=== PATIENT | female | born 1960 | race American Indian/Alaskan Native ===

== ENCOUNTER 2020-08-10 19:49 | Emergency (ER) | payer OTHER ==
[2020-08-10 20:30] VITALS: BP 170/90
[2020-08-10] MEDS ORDERED: ONDANSETRON 4 MG ODT TAB PO ONE (20:40)
[2020-08-10] MEDS ORDERED: oxyCODONE /ACETAMINOPHEN 5-325MG TAB PO ONE (20:40)
--- NOTE | 2020-08-10 20:42 | Event Note ---
ED Screening Note Date of service: 08/10/20 Time: 20:41 ED Screening Note: Pt c/o left flank pain and nausea/vomiting times a day States history of kidney stones and states his pain feels similar This initial assessment/diagnostic orders/clinical plan/treatment(s) is/are subject to change based on patients health status, clinical progression and re- assessment by fellow clinical providers in the ED. Further treatment and workup at subsequent clinical providers discretion. Patient/guardian urged not to elope from the ED as their condition may be serious if not clinically assessed and managed. Initial orders include: Lab Pain meds
[2020-08-10 21:17] LABS: Hematocrit 40.4 % (30.3-42.9); Hemoglobin 13.7 gm/dl (10.1-14.3); Mean Corpuscular HGB Conc 34 % (30-34); Mean Corpuscular Volume 98 fl (79-97); Platelet Count 409 K/mm3 (140-440); Red Cell Distribution Width 12.7 % (13.2-15.2)
[2020-08-10 21:27] LABS: Albumin 4.1 g/dL (3.9-5); Calcium 9.6 mg/dL (8.4-10.2)
[2020-08-10 21:41] LABS: Bilirubin,Urine NEG (Negative); Blood,Urine NEG (Negative); Color,Urine Yellow (Yellow); Mucus,Urine FEW /HPF; Protein,Urine <15 mg/dL mg/dL (Negative); Urobilinogen,Urine < 2.0 mg/dL (<2.0)
[2020-08-10 22:05] LABS: Basophils % (Manual) 0 % (0.0-1.8); Eosinophils % (Manual) 0 % (0.0-4.3); Total Cells Counted 100
[2020-08-10 22:08] LABS: RBC Morphology Normal
[2020-08-11] MEDS ORDERED: ONDANSETRON 4 MG/2 ML INJ IV ONE (00:08)
[2020-08-11] MEDS ORDERED: KETOROLAC 30 MG/1 ML INJ IV ONE (00:08)
[2020-08-11] MEDS ORDERED: MORPHINE 4 MG/1 ML INJ IV ONE (00:08)
--- NOTE | 2020-08-11 01:10 | Cat Scan Report ---
CT abdomen pelvis wo con INDICATION / CLINICAL INFORMATION: Patient complains of LEFT sided flank pain. TECHNIQUE: Axial CT imaging of abdomen and pelvis was obtained without contrast. Coronal and sagittal reformatte d imaging obtained and reviewed. All CT scans at this location are performed using CT dose reduction for ALARA by means of automated exposure control. COMPARISON: None available. FINDINGS: CT abdomen without contrast demonstrates normal appearance of the liver, spleen, pancreas, right kidn ey, and gallbladder. There is prominent left hydronephrosis caused by a large calculus in the proxima l left ureter at the UPJ level. Calculus measures approximately 13 mm in length. There is prominent p erinephric inflammatory change surrounding the left kidney. Multiple calcified phleboliths within the left ovarian artery incidentally noted. Bilateral adrenal gland adenomas are noted. The right adrenal gland adenoma measures approximately 1. 4 cm with the left adrenal gland adenoma measuring approximately 2.[address] pelvis without contrast does not demonstrate any pelvic mass, free fluid, or focal inflammatory ch ortiz. The appendix is well-visualized and appears unremarkable. Note, there is a linear high density structure in the cecum. This does not appear to be causing any inflammation or abnormality but a smal l radiopaque linear foreign object cannot be excluded. Visualized lung bases are clear. No acute significant skeletal abnormality noted. IMPRESSION: 1. High-grade left hydronephrosis caused by a 13 mm calculus in the proximal left ureter at the UPJ l evel. 2. Incidental finding of a 3 cm linear high density object is seen within the cecum of uncertain etio logy or significance. A foreign object is not completely excluded. 3. Incidental finding of bilateral adrenal gland adenomas. Signer Name: Tess Landrum MD Signed: 08/11/2020 1:06 AM Workstation Name: [id number]
--- NOTE | 2020-08-11 01:41 | Emergency Department Report ---
ED Abdominal Pain HPI - General Chief Complaint: Abdominal Pain Stated Complaint: FLANK PAIN Time Seen by Provider: 08/10/20 20:39 Source: patient Mode of arrival: Ambulatory Limitations: No Limitations - History of Present Illness Initial Comments: Patient is a 60-year-old F [place] female who is presenting with left flank pain. Patient states pain was present throughout the day. She is had some nausea vomiting. She has a remote history of kidney stones. Patient denies any hematuria or urinary frequency. Pain is a 10 out of 10. Severity scale (0 -10): 10 - Related Data Previous Rx's Medication Instructions Recorded Last Taken Type Ketorolac [Toradol] 10 mg PO Q6H PRN #12 tablet 08/11/20 Unknown Rx Ondansetron [Zofran Odt] 4 mg PO Q8HR #10 tab.rapdis 08/11/20 Unknown Rx Oxycodone HCl/Acetaminophen 1 each PO Q6HR PRN #14 tablet 08/11/20 Unknown Rx [Percocet 7.5/325 mg] Allergies Allergy/AdvReac Type Severity Reaction Status Date / Time No Known Allergies Allergy Unverified 08/10/20 20:38 ED Review of Systems ROS: Stated complaint: FLANK PAIN Other details as noted in HPI Comment: All other systems reviewed and negative ED Past Medical Hx - Past Medical History Previous Medical History?: Yes Hx Hypertension: Yes Hx Diabetes: Yes Hx Kidney Stones: Yes Hx Asthma: Yes - Surgical History Past Surgical History?: Yes Additional Surgical History: - Social History Smoking Status: Never Smoker Substance Use Type: None - Medications Home Medications: Home Medications Medication Instructions Recorded Confirmed Last Taken Type Ketorolac [Toradol] 10 mg PO Q6H PRN #12 tablet 08/11/20 Unknown Rx Ondansetron [Zofran Odt] 4 mg PO Q8HR #10 tab.rapdis 08/11/20 Unknown Rx Oxycodone HCl/Acetaminophen 1 each PO Q6HR PRN #14 tablet 08/11/20 Unknown Rx [Percocet 7.5/325 mg] ED Physical Exam - General Limitations: No Limitations General appearance: alert, in distress - Head Head exam: Present: atraumatic, normocephalic - Eye Eye exam: Present: normal appearance - ENT ENT exam: Present: mucous membranes moist - Neck Neck exam: Present: normal inspection - Respiratory Respiratory exam: Present: normal lung sounds bilaterally. Absent: respiratory distress - Cardiovascular Cardiovascular Exam: Present: regular rate, normal rhythm. Absent: systolic murmur, diastolic murmur, rubs, gallop - GI/Abdominal GI/Abdominal exam: Present: soft, tenderness (left flank), normal bowel sounds. Absent: distended, guarding, rebound, rigid - Extremities Exam Extremities exam: Present: normal inspection - Back Exam Back exam: Present: normal inspection - Neurological Exam Neurological exam: Present: alert, oriented X3 - Psychiatric Psychiatric exam: Present: normal affect, normal mood - Skin Skin exam: Present: warm, dry, intact, normal color. Absent: rash ED Course Vital Signs 08/10/20 20:28 Temperature 98.6 F Pulse Rate 96 H Respiratory 22 Rate Blood Pressure 170/90 O2 Sat by Pulse 97 Oximetry ED Medical Decision Making - Lab Data Result diagrams: 08/10/20 20:48 08/10/20 20:48 Lab Results 08/10/20 08/10/20 08/10/20 Range/Units 20:48 20:48 Unknown WBC 11.5 H (4.5-11.0) K/mm3 RBC 4.10 (3.65-5.03) M/mm3 Hgb 13.7 (10.1-14.3) gm/dl Hct 40.4 (30.3-42.9) % MCV 98 H (79-97) fl MCH 33 H (28-32) pg MCHC 34 (30-34) % RDW 12.7 L (13.2-15.2) % Plt Count 409 (140-440) K/mm3 [place] % (Auto) Radiator Cleaner Add Manual Diff Complete Total Counted 100 Seg Neutrophils % Radiator Cleaner Seg Neuts % (Manual) 88.0 H (40.0-70.0) % Band Neutrophils % 0 % Lymphocytes % (Manual) 10.0 L (13.4-35.0) % Reactive Lymphs % (Man) 0 % Monocytes % (Manual) 2.0 (0.0-7.3) % Eosinophils % (Manual) 0 (0.0-4.3) % Basophils % (Manual) 0 (0.0-1.8) % Metamyelocytes % 0 % Myelocytes % 0 % Promyelocytes % 0 % Blast Cells % 0 % Nucleated RBC % Not Reportable Seg Neutrophils # Man 10.1 H (1.8-7.7) K/mm3 Band Neutrophils # 0.0 K/mm3 Lymphocytes # (Manual) 1.2 (1.2-5.4) K/mm3 Abs React Lymphs (Man) 0.0 K/mm3 Monocytes # (Manual) 0.2 (0.0-0.8) K/mm3 Eosinophils # (Manual) 0.0 (0.0-0.4) K/mm3 Basophils # (Manual) 0.0 (0.0-0.1) K/mm3 Metamyelocytes # 0.0 K/mm3 Myelocytes # 0.0 K/mm3 Promyelocytes # 0.0 K/mm3 Blast Cells # 0.0 K/mm3 WBC Morphology Not Reportable Hypersegmented Neuts Not Reportable Hyposegmented Neuts Not Reportable Hypogranular Neuts Not Reportable Smudge Cells Not Reportable Toxic Granulation Not Reportable Toxic Vacuolation Not Reportable Dohle Bodies Not Reportable Pelger-Huet Anomaly Not Reportable Parth Rods Not Reportable Platelet Estimate Not Reportable Clumped Platelets Not Reportable Plt Clumps, EDTA Not Reportable Large Platelets Not Reportable Giant Platelets Not Reportable Platelet Satelliting Not Reportable Plt Morphology Comment Not Reportable RBC Morphology Normal Dimorphic RBCs Not Reportable Polychromasia Not Reportable Hypochromasia Not Reportable Poikilocytosis Not Reportable Anisocytosis Not Reportable Microcytosis Not Reportable Macrocytosis Not Reportable Spherocytes Not Reportable Pappenheimer Bodies Not Reportable Sickle Cells Not Reportable Target Cells Not Reportable Tear Drop Cells Not Reportable Ovalocytes Not Reportable Helmet Cells Not Reportable Wong-Devine Bodies Not Reportable [place] Rings Not Reportable Ina Cells Not Reportable Bite Cells Not Reportable Crenated Cell Not Reportable Elliptocytes Not Reportable Acanthocytes (Spur) Not Reportable Rouleaux Not Reportable Hemoglobin C Crystals Not Reportable Schistocytes Not Reportable Malaria parasites Not Reportable Wiliam Bodies Not Reportable Hem Pathologist Commnt No Sodium 137 (137-145) mmol/L Potassium 4.3 (3.6-5.0) mmol/L Chloride 101.3 (98-107) mmol/L Carbon Dioxide 23 (22-30) mmol/L Anion Gap 17 mmol/L BUN 19 H (7-17) mg/dL Creatinine 1.7 H (0.6-1.2) mg/dL Estimated GFR 37 ml/min BUN/Creatinine Ratio 11 % Glucose 205 H (65-100) mg/dL Calcium 9.6 (8.4-10.2) mg/dL Total Bilirubin 0.30 (0.1-1.2) mg/dL AST 15 (5-40) units/L ALT 14 (7-56) units/L Alkaline Phosphatase 122 (35-129) units/L Total Protein 7.9 (6.3-8.2) g/dL Albumin 4.1 (3.9-5) g/dL Albumin/Globulin Ratio 1.1 % Lipase 19 (13-60) units/L Urine Color Yellow (Yellow) Urine Turbidity Clear (Clear) Urine pH 5.0 (5.0-7.0) Ur Specific [place] 1.020 (1.003-1.030) Urine Protein <15 mg/dl (Negative) mg/dL Urine Glucose (UA) Neg (Negative) mg/dL Urine Ketones Neg (Negative) mg/dL Urine Blood Neg (Negative) Urine Nitrite Neg (Negative) Urine Bilirubin Neg (Negative) Urine Urobilinogen < 2.0 (<2.0) mg/dL Ur Leukocyte Esterase Tr (Negative) Urine WBC (Auto) 2.0 (0.0-6.0) /HPF Urine RBC (Auto) 2.0 (0.0-6.0) /HPF U Epithel Cells (Auto) 5.0 (0-13.0) /HPF Urine Mucus Few /HPF - Radiology Data CT abdomen pelvis wo con INDICATION / CLINICAL INFORMATION: Patient complains of LEFT sided flank pain. TECHNIQUE: Axial CT imaging of abdomen and pelvis was obtained without contrast. Coronal and sagittal reformatted imaging obtained and reviewed. All CT scans at this location are performed using CT dose reduction for ALARA by means of automated exposure control. COMPARISON: None available. FINDINGS: CT abdomen without contrast demonstrates normal appearance of the liver, spleen, pancreas, right kidney, and gallbladder. There is prominent left hydronephrosis caused by a large calculus in the proximal left ureter at the UPJ level. Calculus measures approximately 13 mm in length. There is prominent perinephric inflammatory change surrounding the left kidney. Multiple calcified phleboliths within the left ovarian artery incidentally noted. Bilateral adrenal gland adenomas are noted. The right adrenal gland adenoma measures approximately 1.4 cm with the left adrenal gland adenoma measuring approximately 2.[address] pelvis without contrast does not demonstrate any pelvic mass, free fluid, or focal inflammatory change. The appendix is well-visualized and appears unremarkable. Note, there is a linear high density structure in the cecum. This does not appear to be causing any inflammation or abnormality but a small radiopaque linear foreign object cannot be excluded. Visualized lung bases are clear. No acute significant skeletal abnormality noted. IMPRESSION: 1. High-grade left hydronephrosis caused by a 13 mm calculus in the proximal left ureter at the UPJ level. 2. Incidental finding of a 3 cm linear high density object is seen within the cecum of uncertain etiology or significance. A foreign object is not completely excluded. 3. Incidental finding of bilateral adrenal gland adenomas. Signer Name: Tess Landrum MD Signed: 08/11/2020 1:06 AM Workstation Name: [id number] - Medical Decision Making At 1:30 AM went to check on the patient. She states that over the last 30 minutes her pain is completely resolved to a 0 out of 10. Patient is no longer nauseous. Patient does have a rather large stone but is likely at the renal pelvis and is now drifted further up into the kidney. Because her pain is completely gone patient will be discharged home to follow-up with urology. I did stress that patient that the stone likely would not be able to pass on its own. States she has had to have urological intervention in the past. Critical care attestation.: If time is entered above; I have spent that time in minutes in the direct care of this critically ill patient, excluding procedure time. ED Disposition Clinical Impression: Hydronephrosis Disposition: DC-01 TO HOME OR SELFCARE Is pt being admited?: No Does the pt Need Aspirin: No Condition: Stable Instructions: Abdominal Pain (ED), Hydronephrosis, Kidney Stones, [id number] Referrals: OSMAR ANDINO MD [Staff Physician] - 24 Hours (Call in the morning ) Time of Disposition: 01:44
== END 2020-08-11 02:20 | disposition home or self-care (01) ==
LOC: ED 19:49
DX: N13.30 Unspecified hydronephrosis (principal); I10 Essential (primary) hypertension; E11.9 Type 2 diabetes mellitus without complications; J45.909 Unspecified asthma, uncomplicated; Z98.890 Other specified postprocedural states; Z79.899 Other long term (current) drug therapy
CPT/HCPCS: 36415; 74176; 80053; 81001; 83690; 85007; 85025; 96374; 96375; 99284; J1885; J2270; J2405; Q0162

== ENCOUNTER 2022-01-25 06:35 | Inpatient (IN) | payer OTHER ==
[2022-01-25 08:31] LABS: Hematocrit 45.2 % (30.3-42.9); Hemoglobin 15.1 gm/dl (10.1-14.3); Mean Corpuscular HGB Conc 33 % (30-34); Mean Corpuscular Volume 96 fl (79-97); Platelet Count 346 K/mm3 (140-440); Red Blood Count 4.73 M/mm3 (3.65-5.03); Red Cell Distribution Width 12.3 % (13.2-15.2)
[2022-01-25 08:50] LABS: Albumin 4.4 g/dL (3.9-5); Calcium 10.3 mg/dL (8.4-10.2)
[2022-01-25] MEDS ORDERED: methylPREDNISolone Sod Succinate 125 MG/2 ML INJ IV ONE (16:34)
[2022-01-25] MEDS ORDERED: IPRATROPIUM/ALBUTEROL SULFATE 3 ML AMPUL.NEB IH ONE (16:34)
[2022-01-25] MEDS ORDERED: MAGNESIUM SULFATE 2 GM/50 ML BAG IV ONE (16:34)
[2022-01-25] MEDS ORDERED: SODIUM CHLORIDE 0.9% 1000 ML 1,000 ML IV ONE ×2 (16:34→18:15)
--- NOTE | 2022-01-25 16:36 | Emergency Department Report ---
ED Shortness of Breath HPI - General Chief Complaint: Hyperglycemia Stated Complaint: BREATHING,HYPERGLYCEMIA, BP Time Seen by Provider: 01/25/22 15:51 Source: patient Mode of arrival: Ambulatory Limitations: No Limitations - History of Present Illness Initial Comments: Patient is a 34-year-old female that presents emergency room for complaints of elevated blood sugar, shortness of breath, blurry vision and elevated blood pressure. Patient states that her blood sugars been high for about 1 week. Patient states that her blurry vision started approximately 4 days ago. Patient states that her blood sugar last night was 750. Patient states she called her primary care and her primary care was unable to see her. Patient states been having shortness of breath for approximately 4 days. Patient states that she is having coughing and wheezing. Patient dates she has a history of asthma. Patient states that her shortness of breath is better with rest and worse with exertion. Patient states she is not having any chest pain. Patient denies fev er and chills. Patient states she is compliant with her diabetes medications. Patient denies recent travel. Patient denies recent international travel. Patient denies exposure to the novel coronavirus. Patient denies sick contacts. Patient denies fever and chills. Patient denies cough. Patient denies diarrhea. Patient denies coming in contact with anybody with symptoms of the novel coronavirus. Complaint: shortness of breath, cough -: Gradual Severity: severe Consistency: constant Improves With: rest Worsens With: exertion, movement Known History Of: asthma Associated Symptoms: cough Treatments Prior to Arrival: bronchodilator - Related Data Home Oxygen Therapy: No Home Medications Medication Instructions Recorded Confirmed Last Taken ALBUTEROL NEB's [Proventil 0.083% 2.5 mg IH TID PRN 01/25/22 01/25/22 Unknown NEBS] Albuterol Sulfate [Proair 90 mcg IH TID PRN 01/25/22 01/26/22 Unknown Digihaler] Omeprazole 20 mg PO DAILY 01/25/22 01/26/22 01/25/22 Potassium Chloride 10 meq PO DAILY 01/25/22 01/26/22 01/25/22 Tamsulosin [Flomax] 0.4 mg PO QDAY 01/25/22 01/26/22 01/25/22 amLODIPine [Norvasc] 10 mg PO DAILY 01/25/22 01/26/2222 hydroCHLOROthiazide 12.5 mg PO DAILY 01/25/22 01/26/22 01/25/22 [Hydrochlorothiazide] Previous Rx's Medication Instructions Recorded Last Taken Type Oxycodone HCl/Acetaminophen 1 each PO Q6HR PRN #14 tablet 08/11/20 01/18/22 Rx [Percocet 7.5/325 mg] Allergies Allergy/AdvReac Type Severity Reaction Status Date / Time No Known Allergies Allergy Unverified 08/10/20 20:38 ED Review of Systems ROS: Stated complaint: BREATHING,HYPERGLYCEMIA, BP Other details as noted in HPI Constitutional: denies: chills, fever Eyes: denies: eye pain, eye discharge, vision change ENT: denies: ear pain, throat pain Respiratory: see HPI, cough, shortness of breath, SOB with exertion, SOB at rest, wheezing Cardiovascular: denies: chest pain, palpitations Endocrine: no symptoms reported Gastrointestinal: denies: abdominal pain, nausea, diarrhea Genitourinary: denies: urgency, dysuria, discharge Musculoskeletal: denies: back pain, joint swelling, arthralgia Skin: denies: rash, lesions Neurological: as per HPI. denies: headache, weakness, paresthesias Psychiatric: denies: anxiety, depression Hematological/Lymphatic: denies: easy bleeding, easy bruising ED Past Medical Hx - Past Medical History Previous Medical History?: Yes Hx Hypertension: Yes Hx Diabetes: Yes Hx Kidney Stones: Yes Hx Asthma: Yes - Surgical History Past Surgical History?: Yes Additional Surgical History: - Family History Family history: no significant - Social History Smoking Status: Never Smoker Substance Use Type: None - Medications Home Medications: Home Medications Medication Instructions Recorded Confirmed Last Taken Type Oxycodone HCl/Acetaminophen 1 each PO Q6HR PRN #14 tablet 08/11/20 01/26/22 01/18/22 Rx [Percocet 7.5/325 mg] ALBUTEROL NEB's [Proventil 0.083% 2.5 mg IH TID PRN 01/25/22 01/25/22 Unknown H istory NEBS] Albuterol Sulfate [Proair 90 mcg IH TID PRN 01/25/22 01/26/22 Unknown History Digihaler] Omeprazole 20 mg PO DAILY 01/25/22 01/26/2222 History Potassium Chloride 10 meq PO DAILY 01/25/22 01/26/22 01/25/22 History Tamsulosin [Flomax] 0.4 mg PO QDAY 01/25/22 01/26/22 01/25/22 History amLODIPine [Norvasc] 10 mg PO DAILY 01/25/22 01/26/22 01/25/22 History hydroCHLOROthiazide 12.5 mg PO DAILY 01/25/22 01/26/22 01/25/22 History [Hydrochlorothiazide] ED Physical Exam - General Limitations: No Limitations General appearance: alert, in distress - Head Head exam: Present: atraumatic, normocephalic - Eye Eye exam: Present: normal appearance - ENT ENT exam: Present: mucous membranes moist - Neck Neck exam: Present: normal inspection - Respiratory Respiratory exam: Present: respiratory distress, wheezes, accessory muscle use, decreased breath sounds - Cardiovascular Cardiovascular Exam: Present: regular rate, normal rhythm. Absent: systolic murmur, diastolic murmur, rubs, gallop - GI/Abdominal GI/Abdominal exam: Present: soft, normal bowel sounds - Extremities Exam Extremities exam: Present: normal inspection - Back Exam Back exam: Present: normal inspection - Neurological Exam Neurological exam: Present: alert, oriented X3 - Psychiatric Psychiatric exam: Present: normal affect, normal mood - Skin Skin exam: Present: warm, dry, intact, normal color. Absent: rash ED Course Vital Signs 01/25/22 01/25/22 01/25/22 06:40 13:33 16:20 Temperature 98.4 F Pulse Rate 94 H Pulse Rate [ Anterior Bilateral Throughout] Respiratory 20 22 Rate Respiratory Rate [Anterior Bilateral Throughout] Blood Pressure Blood Pressure 118/74 [Right] O2 Sat by Pulse 95 98 97 Oximetry 01/25/22 01/25/22 01/25/22 16:30 16:46 17:00 Temperature Pulse Rate 92 H 96 H 85 Pulse Rate [ Anterior Bilateral Throughout] Respiratory 21 21 18 Rate Respiratory Rate [Anterior Bilateral Throughout] Blood Pressure 139/92 139/92 139/92 Blood Pressure [Right] O2 Sat by Pulse 99 99 99 Oximetry 01/25/22 01/25/22 01/25/22 17:08 17:30 17:40 Temperature Pulse Rate 75 85 Pulse Rate [ Anterior Bilateral Throughout] Respiratory 20 15 18 Rate Respiratory Rate [Anterior Bilateral Throughout] Blood Pressure 139/92 139/92 Blood Pressure [Right] O2 Sat by Pulse 96 97 95 Oximetry 01/25/22 01/25/22 01/25/22 17:44 17:50 18:00 Temperature Pulse Rate 78 86 Pulse Rate [ 74 Anterior Bilateral Throughout] Respiratory 20 15 Rate Respiratory 16 Rate [Anterior Bilateral Throughout] Blood Pressure 139/92 139/92 Blood Pressure [Right] O2 Sat by Pulse 97 99 Oximetry 01/25/22 01/25/22 01/25/22 18:10 18:20 18:30 Temperature Pulse Rate 75 75 87 Pulse Rate [ Anterior Bilateral Throughout] Respiratory 17 16 19 Rate Respiratory Rate [Anterior Bilateral Throughout] Blood Pressure 139/92 139/92 127/61 Blood Pressure [Right] O2 Sat by Pulse 99 98 99 Oximetry 01/25/22 01/25/22 01/25/22 18:38 18:40 18:50 Temperature Pulse Rate 87 84 83 Pulse Rate [ Anterior Bilateral Throughout] Respiratory 18 12 14 Rate Respiratory Rate [Anterior Bilateral Throughout] Blood Pressure 127/61 127/61 Blood Pressure 127/61 [Right] O2 Sat by Pulse 98 100 98 Oximetry 01/25/22 01/25/22 01/25/22 19:00 19:10 19:20 Temperature Pulse Rate 78 77 82 Pulse Rate [ Anterior Bilateral Throughout] Respiratory 22 22 22 Rate Respiratory Rate [Anterior Bilateral Throughout] Blood Pressure 136/90 136/90 136/90 Blood Pressure [Right] O2 Sat by Pulse 98 98 98 Oximetry 01/25/22 01/25/22 01/25/22 19:30 19:40 19:50 Temperature Pulse Rate 84 85 79 Pulse Rate [ Anterior Bilateral Throughout] Respiratory 19 20 23 Rate Respiratory Rate [Anterior Bilateral Throughout] Blood Pressure 136/90 136/90 136/90 Blood Pressure [Right] O2 Sat by Pulse 99 99 95 Oximetry 01/25/22 01/25/22 01/25/22 20:00 20:10 20:20 Temperature Pulse Rate 79 81 86 Pulse Rate [ Anterior Bilateral Throughout] Respiratory 12 24 16 Rate Respiratory Rate [Anterior Bilateral Throughout] Blood Pressure 139/81 139/81 139/81 Blood Pressure [Right] O2 Sat by Pulse 97 96 98 Oximetry 01/25/22 01/25/22 01/25/22 20:30 20:40 20:50 Temperature Pulse Rate 76 76 80 Pulse Rate [ Anterior Bilateral Throughout] Respiratory 19 14 17 Rate Respiratory Rate [Anterior Bilateral Throughout] Blood Pressure 139/81 139/81 139/81 Blood Pressure [Right] O2 Sat by Pulse 97 95 95 Oximetry 01/25/22 01/25/22 01/25/22 21:00 21:10 21:20 Temperature Pulse Rate 95 H 89 86 Pulse Rate [ Anterior Bilateral Throughout] Respiratory 15 23 16 Rate Respiratory Rate [Anterior Bilateral Throughout] Blood Pressure 69/50 69/50 69/50 Blood Pressure [Right] O2 Sat by Pulse 94 96 96 Oximetry 01/25/22 01/25/22 01/25/22 21:30 21:46 21:50 Temperature Pulse Rate 83 96 H 92 H Pulse Rate [ Anterior Bilateral Throughout] Respiratory 24 23 21 Rate Respiratory Rate [Anterior Bilateral Throughout] Blood Pressure 69/50 69/50 69/50 Blood Pressure [Right] O2 Sat by Pulse 96 97 97 Oximetry 01/25/22 01/25/22 22:00 22:23 Temperature 98.9 F Pulse Rate 84 86 Pulse Rate [ Anterior Bilateral Throughout] Respiratory 28 H 20 Rate Respiratory Rate [Anterior Bilateral Throughout] Blood Pressure 69/50 152/84 Blood Pressure [Right] O2 Sat by Pulse 95 97 Oximetry - Reevaluation(s) Reevaluation #1: Patient still wheezing. Patient placed on supplemental oxygen 01/25/22 1625 Reevaluation #2: Patient still requiring supplemental oxygen. Patient has had mag, Solu-Medrol and DuoNeb and patient continues to wheeze. I discussed all results with patient. I discussed plan of care with patient. Kate xochitlric agrees with plan of care and admission. Patient to be admitted to the hospitalist service. 01/25/22 18:17 - Consultations Consultation #1: Hospitalist consulted for admission. Hospitalist to admit patient. 01/25/22 18:17 ED Medical Decision Making - Lab Data Result diagrams: 01/25/22 08:18 01/25/22 08:18 - Radiology Data Radiology results: report reviewed interpreted by me: Chest x-ray: No pneumonia, no pneumothorax, no foreign body, no osseous findings, no acute findings . CHEST 1 VIEW 01/25/2022 3:55 PM INDICATION / CLINICAL INFORMATION: Shortness of breath. COMPARISON: None available. FINDINGS: SUPPORT DEVICES: None. HEART / MEDIASTINUM: No significant abnormality. LUNGS / PLEURA: No significant pulmonary or pleural abnormality. No pneumothorax. ADDITIONAL FINDINGS: No significant additional findings. IMPRESSION: 1. No acute findings. - Medical Decision Making Patient is a 61-year-old female who presents emergency room for shortness of breath, blurry vision, hyperglycemia, asthma. Patient initial exam found to have low oxygen and wheezing and difficulty breathing and increased work to breathe. Patient given mag, Solu-Medrol and DuoNeb. Patient continued to wheeze. Patient had labs done. Patient's labs showed elevated blood sugar but no DKA. Patient's labs are essentially unremarkable. Patient had a chest x-ray which was negative for acute findings. Patient admitted to the hospital service for further evaluation and treatment. Critical care time documented due to the multiple reassessments, prolonged time at the bedside, interpretation of diagnostics and labs. - Differential Diagnosis sob, dka, status asthmaticus, hypoxia, pneumonia, hyperglycemia, Critical Care Time: Yes Critical care time in (mins) excluding proc time.: 35 Critical care attestation.: If time is entered above; I have spent that time in minutes in the direct care of this critically ill patient, excluding procedure time. Critical Care Time: 35 minutes ED Disposition Clinical Impression: Hyperglycemia, Shortness of breath Respiratory failure Qualifiers: Chronicity: acute Respiratory failure complication: hypoxia Qualified Code(s): J96.01 - Acute respiratory failure with hypoxia Status asthmaticus Qualifiers: Asthma severity: mild Asthma persistence: unspecified Qualified Code(s): J45.902 - Unspecified asthma with status asthmaticus Disposition: ADMITTED INPATIENT Is pt being admited?: Yes Does the pt Need Aspirin: No Condition: Critical Time of Disposition: 18:17
[2022-01-25 17:07] LABS: Bilirubin,Urine NEG (Negative); Blood,Urine NEG (Negative); Color,Urine Yellow (Yellow); Mucus,Urine FEW /HPF; Protein,Urine <15 mg/dL mg/dL (Negative); Urobilinogen,Urine < 2.0 mg/dL (<2.0)
--- NOTE | 2022-01-25 17:15 | XRay Report ---
CHEST 1 VIEW 01/25/2022 3:55 PM INDICATION / CLINICAL INFORMATION: Shortness of breath. COMPARISON: None available. FINDINGS: SUPPORT DEVICES: None. HEART / MEDIASTINUM: No significant abnormality. LUNGS / PLEURA: No significant pulmonary or pleural abnormality. No pneumothorax. ADDITIONAL FINDINGS: No significant additional findings. IMPRESSION: 1. No acute findings. Signer Name: Dominick Mondragon MD Signed: 01/25/2022 5:11 PM Workstation Name: [id number]
[2022-01-25] MEDS ORDERED: oxyCODONE /ACETAMINOPHEN 5-325MG TAB PO PRN (18:15)
[2022-01-25] MEDS ORDERED: ALBUTEROL 2.5 MG/3 ML NEBU IH PRN (18:15)
[2022-01-25] MEDS ORDERED: HYDROmorphone 1 MG/1 ML INJ IV PRN (18:15)
[2022-01-25] MEDS ORDERED: ONDANSETRON 4 MG/2 ML INJ IV PRN (18:15)
--- NOTE | 2022-01-25 18:17 | History and Physical Report ---
History of Present Illness Chief complaint: I cannot breathe History of present illness: 61 YO Female with HTN, DM, Nephrolithiasis, Asthma, Metabolic Syndrome presents to ED for evaluation. Patient reports I cannot breathe". Patient states that she had experienced shortness of breath over the past 4 days with persistent and worsening symptoms over the same timeframe. Patient transported to [facility] via private vehicle for further care and evaluation of the aforementioned symptoms. The patient was seen and evaluated in the emergency department. All lab and imaging studies reviewed. Patient found to have status asthmaticus with a pulse oximetry of 88% on room air which is consistent with acute hypoxemic respiratory failure. Patient was treated with nebulizer therapy as well as supplemental oxygen with mild improvement in symptoms. Patient subsequently placed on noninvasive positive pressure ventilation with improvement in symptoms. Patient is unable to speak in complete sentences, using accessory muscles to breathe, tripoding, leaning forward in bed, and retracting. No reports of fever, chills, chest pain, palpitation, productive cough, skin rash, recent contact, known exposure to COVID-19. No prior admission for review. No medication listed at time of admission for reconciliation. Advanced care planning conducted in ED. Past History Past Medical History: diabetes, hypertension, other (See HPI) Past Surgical History: Social history: single. denies: smoking, alcohol abuse, prescription drug abuse Family history: diabetes, hypertension Medications and Allergies Allergies Allergy/AdvReac Type Severity Reaction Status Date / Time No Known Allergies Allergy Unverified 08/10/20 20:38 Home Medications Medication Instructions Recorded Confirmed Last Taken Type Ketorolac [Toradol] 10 mg PO Q6H PRN #12 tablet 08/11/20 Unknown Rx Ondansetron [Zofran Odt] 4 mg PO Q8HR #10 tab.rapdis 08/11/20 Unknown Rx Oxycodone HCl/Acetaminophen 1 each PO Q6HR PRN #14 tablet 08/11/20 Unknown Rx [Percocet 7.5/325 mg] ALBUTEROL NEB's [Proventil 0.083% 2.5 mg IH TID PRN 01/25/22 01/25/22 Unknown History NEBS] Albuterol Sulfate [Proair 90 mcg IH TID PRN 01/25/22 01/25/22 01/25/22 History Digihaler] Omeprazole 20 mg PO DAILY 01/25/22 01/25/22 Unknown History Potassium Chloride 10 meq PO DAILY 01/25/22 01/25/22 Unknown History Tamsulosin [Flomax] 0.4 mg PO QDAY 01/25/22 01/25/22 Unknown History amLODIPine [Norvasc] 10 mg PO DAILY 01/25/22 01/25/22 Unknown History hydroCHLOROthiazide 12.5 mg PO DAILY 01/25/22 01/25/22 Unknown History [Hydrochlorothiazide] Active Meds: Active Medications Acetaminophen (Acetaminophen 325 Mg Tab) 650 mg PO Q4H PRN PRN Reason: Pain MILD(1-3)/Fever >100.5/CHANDLER Sodium Chloride (Nacl 0.9% 1000 Ml) 1,000 mls @ 999 mls/hr IV BOLUS ONE Stop: 01/25/22 19:15 Ondansetron HCl (Ondansetron 4 Mg/2 Ml Inj) 4 mg IV Q8H PRN PRN Reason: Nausea And Vomiting Sodium Chloride (Sodium Chloride 0.9% 10 Ml Flush Syringe) 10 ml IV BID MILO Sodium Chloride (Sodium Chloride 0.9% 10 Ml Flush Syringe) 10 ml IV PRN PRN PRN Reason: LINE FLUSH Review of Systems Constitutional: no weight loss, no weight gain, no fever, no chills Ears, nose, mouth and throat: no ear pain, no ear discharge, no decreased hearing, no nasal congestion, no nasal discharge Breasts: no change in shape, no swelling, no mass Cardiovascular: shortness of breath, no chest pain, no orthopnea, no rapid/i rregular heart beat, no syncope Respiratory: shortness of breath, wheezing, no cough, no cough with sputum Gastrointestinal: no abdominal pain, no nausea, no diarrhea, no change in bowel habits Genitourinary Female: no pelvic pain, no flank pain, no dysuria, no urinary frequency, no urgency Rectal: no pain, no incontinence, no bleeding Musculoskeletal: no neck stiffness, no shooting arm pain, no arm numbness/tingling, no shooting leg pain Integumentary: no rash, no redness, no sores, no wounds, no jaundice, no boils Neurological: no head injury, no transient paralysis, no weakness, no parathesias, no tingling, no seizures, no syncope, no tremors Psychiatric: no anxiety, no memory loss, no sleep disturbances, no hypersomnia, no suicidal ideation Endocrine: no cold intolerance, no heat intolerance, no excessive thirst, no polydipsia, no nocturia, no excessive sweating Hematologic/Lymphatic: no easy bruising, no easy bleeding Allergic/Immunologic: no urticaria Exam - Constitutional Vitals: Temp Pulse Resp BP Pulse Ox 98.4 F 74 16 139/92 97 01/25/22 06:40 01/25/22 17:44 01/25/22 17:44 01/25/22 17:30 01/25/22 17:30 General appearance: Present: mild distress, obese - EENT Eyes: Present: PERRL ENT: hearing intact, clear oral mucosa - Neck Neck: Present: supple, normal ROM - Respiratory Respiratory effort: normal, labored, accessory muscle use, stridor Respiratory: bilateral: diminished, rhonchi - Cardiovascular Heart Sounds: Present: S1 & S2. Absent: rub, click - Extremities Extremities: pulses symmetrical, No edema Peripheral Pulses: within normal limits - Abdominal General gastrointestinal: Present: soft, non-tender, non-distended, normal bowel sounds Female genitourinary: Present: normal - Integumentary Integumentary: Present: clear, warm, dry - Musculoskeletal Musculoskeletal: gait normal, strength equal bilaterally - Psychiatric Psychiatric: appropriate mood/affect, intact judgment & insight - Neurologic Neurologic: CNII-XII intact, moves all extremities Results - Labs CBC & Chem 7: 01/25/22 08:18 01/25/22 08:18 Labs: Abnormal lab results 01/25/22 01/25/22 01/25/22 Range/Units 06:39 08:18 08:18 Hgb 15.1 H (10.1-14.3) gm/dl Hct 45.2 H (30.3-42.9) % RDW 12.3 L (13.2-15.2) % Sodium 130 L (137-145) mmol/L Chloride 91.5 L (98-107) mmol/L BUN 20 H (7-17) mg/dL Glucose 448 H (65-100) mg/dL POC Glucose 380 H (70-105) mg/dL Calcium 10.3 H (8.4-10.2) mg/dL Alkaline Phosphatase 166 H (35-129) units/L 01/25/22 Range/Units 16:22 Hgb (10.1-14.3) gm/dl Hct (30.3-42.9) % RDW (13.2-15.2) % Sodium (137-145) mmol/L Chloride (98-107) mmol/L BUN (7-17) mg/dL Glucose (65-100) mg/dL POC Glucose 480 H (70-105) mg/dL Calcium (8.4-10.2) mg/dL Alkaline Phosphatase (35-129) units/L Assessment and Plan - Patient Problems (1) Acute hypoxemic respiratory failure Current Visit: Yes Status: Acute Plan to address problem: Chest x-ray, supplemental oxygen, pulse oximetry, nebulizer therapy, noninvasive positive pressure ventilation as clinically indicated, pulmonary toilet. (2) Hyperosmolar hyperglycemic state (HHS) Current Visit: Yes Status: Acute Plan to address problem: Insulin protocol, IV fluid resuscitation therapy, Accu-Chek every 6, high-dose insulin therapy. (3) Obesity hypoventilation syndrome Current Visit: Yes Status: Acute Plan to address problem: Balanced diet, increase physical activity discharge, outpatient pulmonary follow-up for sleep study. (4) Status asthmaticus Current Visit: Yes Status: Acute Qualifiers: Asthma severity: mild Asthma persistence: unspecified Qualified Code(s): J45.902 - Unspecified asthma with status asthmaticus Plan to address problem: Nebulizer therapy, supportive care, noninvasive positive pressure ventilation, bronchodilator therapy. Chest x-ray. IV steroid therapy. (5) DVT prophylaxis Current Visit: Yes Status: Acute Plan to address problem: SCD to bilateral lower extremities while in bed (6) Advance care planning Current Visit: Yes Status: Acute Plan to address problem: Disease education conducted, care plan discussed, diagnoses discussed, prognosis discussed, patient is full code. Patient acknowledges understanding and agreement with care plan, +30 minutes. (7) Preventative health care Current Visit: Yes Status: Acute Plan to address problem: Patient counseled regarding avoidance of asthma triggers, medication plans,
[2022-01-25] MEDS ORDERED: DEXTROSE 50% IN WATER (25GM) 50 ML SYRINGE IV PRN (21:24)
[2022-01-25] MEDS: FAMOTIDINE 10 MG TAB PO SCH (22:52)
[2022-01-25] MEDS: methylPREDNISolone Sod Succinate 40 MG/1 ML INJ IV SCH (22:52)
[2022-01-25] MEDS: ACETAMINOPHEN 325 MG TAB PO PRN (23:59)
[2022-01-26] MEDS: INSULIN LISPRO 100 UNIT/ML SUB-Q SCH ×4 (00:01→17:12)
[2022-01-26 03:40] LABS: Hematocrit 43.5 % (30.3-42.9); Hemoglobin 14.6 gm/dl (10.1-14.3); Mean Corpuscular HGB Conc 34 % (30-34); Mean Corpuscular Volume 94 fl (79-97); Platelet Count 338 K/mm3 (140-440); Red Blood Count 4.62 M/mm3 (3.65-5.03); Red Cell Distribution Width 12.4 % (13.2-15.2)
[2022-01-26 04:56] LABS: Band Neutrophils # (Manual) 0.1 K/mm3; Basophils % (Manual) 0 % (0.0-1.8); Eosinophils % (Manual) 0 % (0.0-4.3); Total Cells Counted 100
[2022-01-26 04:58] LABS: Platelet Estimate Consistent w Auto; RBC Morphology Normal
[2022-01-26] MEDS: methylPREDNISolone Sod Succinate 40 MG/1 ML INJ IV SCH ×3 (05:14→21:39)
[2022-01-26] MEDS ORDERED: INSULIN LISPRO 100 UNIT/ML SUB-Q SCH (05:15)
[2022-01-26] MEDS: FAMOTIDINE 10 MG TAB PO SCH ×2 (09:33→21:39)
[2022-01-26] MEDS: ACETAMINOPHEN 325 MG TAB PO PRN (10:26)
--- NOTE | 2022-01-26 11:03 | Progress Note ---
Assessment and Plan Assessment and plan: 61 YO Female with HTN, DM, Nephrolithiasis, Asthma, Metabolic Syndrome presents to ED for evaluation of shortness of breath over the past 4 days with persistent and worsening symptoms over the same timeframe. Patient transported to [facility] via private vehicle for further care and evaluation of the aforementioned symptoms. The patient was seen and evaluated in the emergency department. All lab and imaging studies reviewed. Patient found to have status asthmaticus with a pulse oximetry of 88% on room air which is consistent with acute hypoxemic respiratory failure. Patient was treated with nebulizer therapy as well as supplemental oxygen with mild improvement in symptoms. Patient subsequently placed on noninvasive positive pressure ventilation with improvement in symptoms. Acute hypoxic respiratory failure Acute asthma exacerbation Nonketotic hyperosmolar syndrome Obesity hypoventilation syndrome/DANNY 01/26/2022. Patient's BG still remains elevated. We will add Lantus 10 units at bedtime. Solu-Medrol contributing to elevated BG. Resume home antidiabetic medications. Continue IV steroids, breathing treatment/nebulizers and supplemental oxygen. History Interval history: No new issues overnight Hospitalist Physical - Constitutional Vitals: Temp Pulse Resp BP Pulse Ox 98.9 F 86 20 152/84 100 01/25/22 22:23 01/25/22 22:23 01/25/22 22:23 01/25/22 22:23 01/26/22 09:04 General appearance: Present: no acute distress, obese - EENT Eyes: Present: PERRL, EOM intact ENT: hearing intact, clear oral mucosa, dentition normal - Neck Neck: Present: supple, normal ROM - Respiratory Respiratory effort: normal Respiratory: bilateral: CTA - Cardiovascular Rhythm: regular Heart Sounds: Present: S1 & S2. Absent: gallop, rub - Extremities Extremities: no ischemia, No edema, Full ROM - Abdominal General gastrointestinal: soft, non-tender, non-distended, normal bowel sounds - Integumentary Integumentary: Present: clear, warm, dry - Neurologic Neurologic: CNII-XII intact, moves all extremities Results - Labs CBC & Chem 7: 01/26/22 03:19 01/26/22 03:19 Labs: Laboratory Last Values WBC 9.5 K/mm3 (4.5-11.0) 01/26/22 03:19 RBC 4.62 M/mm3 (3.65-5.03) 01/26/22 03:19 Hgb 14.6 gm/dl (10.1-14.3) H 01/26/22 03:19 Hct 43.5 % (30.3-42.9) H 01/26/22 03:19 MCV 94 fl (79-97) 01/26/22 03:19 MCH 32 pg (28-32) 01/26/22 03:19 MCHC 34 % (30-34) 01/26/22 03:19 RDW 12.4 % (13.2-15.2) L 01/26/22 03:19 Plt Count 338 K/mm3 (140-440) 01/26/22 03:19 Add Manual Diff Complete 01/26/22 03:19 Total Counted 100 01/26/22 03:19 Seg Neutrophils % Pull Over Machine Operator 01/26/22 03:19 Seg Neuts % (Manual) 91.0 % (40.0-70.0) H 01/26/22 03:19 Band Neutrophils % 1.0 % 01/26/22 03:19 Lymphocytes % (Manual) 7.0 % (13.4-35.0) L 01/26/22 03:19 Reactive Lymphs % (Man) 0 % 01/26/22 03:19 Monocytes % (Manual) 1.0 % (0.0-7.3) 01/26/22 03:19 Eosinophils % (Manual) 0 % (0.0-4.3) 01/26/22 03:19 Basophils % (Manual) 0 % (0.0-1.8) 01/26/22 03:19 Metamyelocytes % 0 % 01/26/22 03:19 Myelocytes % 0 % 01/26/22 03:19 Promyelocytes % 0 % 01/26/22 03:19 Blast Cells % 0 % 01/26/22 03:19 Nucleated RBC % Not Reportable 01/26/22 03:19 Seg Neutrophils # Man 8.6 K/mm3 (1.8-7.7) H 01/26/22 03:19 Band Neutrophils # 0.1 K/mm3 01/26/22 03:19 Lymphocytes # (Manual) 0.7 K/mm3 (1.2-5.4) L 01/26/22 03:19 Abs React Lymphs (Man) 0.0 K/mm3 01/26/22 03:19 Monocytes # (Manual) 0.1 K/mm3 (0.0-0.8) 01/26/22 03:19 Eosinophils # (Manual) 0.0 K/mm3 (0.0-0.4) 01/26/22 03:19 Basophils # (Manual) 0.0 K/mm3 (0.0-0.1) 01/26/22 03:19 Metamyelocytes # 0.0 K/mm3 01/26/22 03:19 Myelocytes # 0.0 K/mm3 01/26/22 03:19 Promyelocytes # 0.0 K/mm3 01/26/22 03:19 Blast Cells # 0.0 K/mm3 01/26/22 03:19 WBC Morphology Not Reportable 01/26/22 03:19 Hypersegmented Neuts Not Reportable 01/26/22 03:19 Hyposegmented Neuts Not Reportable 01/26/22 03:19 Hypogranular Neuts Not Reportable 01/26/22 03:19 Smudge Cells Not Reportable 01/26/22 03:19 Toxic Granulation Not Reportable 01/26/22 03:19 Toxic Vacuolation Not Reportable 01/26/22 03:19 Dohle Bodies Not Reportable 01/26/22 03:19 Pelger-Huet Anomaly Not Reportable 01/26/22 03:19 Parth Rods Not Reportable 01/26/22 03:19 Platelet Estimate Consistent w auto 01/26/22 03:19 Clumped Platelets Not Reportable 01/26/22 03:19 Plt Clumps, EDTA Not Reportable 01/26/22 03:19 Large Platelets Not Reportable 01/26/22 03:19 Giant Platelets Not Reportable 01/26/22 03:19 Platelet Satelliting Not Reportable 01/26/22 03:19 Plt Morphology Comment Not Reportable 01/26/22 03:19 RBC Morphology Normal 01/26/22 03:19 Dimorphic RBCs Not Reportable 01/26/22 03:19 Polychromasia Not Reportable 01/26/22 03:19 Hypochromasia Not Reportable 01/26/22 03:19 Poikilocytosis Not Reportable 01/26/22 03:19 Anisocytosis Not Reportable 01/26/22 03:19 Microcytosis Not Reportable 01/26/22 03:19 Macrocytosis Not Reportable 01/26/22 03:19 Spherocytes Not Reportable 01/26/22 03:19 Pappenheimer Bodies Not Reportable 01/26/22 03:19 Sickle Cells Not Reportable 01/26/22 03:19 Target Cells Not Reportable 01/26/22 03:19 Tear Drop Cells Not Reportable 01/26/22 03:19 Ovalocytes Not Reportable 01/26/22 03:19 Helmet Cells Not Reportable 01/26/22 03:19 Wong-[place] Bodies Not Reportable 01/26/22 03:19 [place] Rings Not Reportable 01/26/22 03:19 [place] Cells Not Reportable 01/26/22 03:19 Bite Cells Not Reportable 01/26/22 03:19 Crenated Cell Not Reportable 01/26/22 03:19 Elliptocytes Not Reportable 01/26/22 03:19 Acanthocytes (Spur) Not Reportable 01/26/22 03:19 Rouleaux Not Reportable 01/26/22 03:19 Hemoglobin C Crystals Not Reportable 01/26/22 03:19 Schistocytes Not Reportable 01/26/22 03:19 Malaria parasites Not Reportable 01/26/22 03:19 Wiliam Bodies Not Reportable 01/26/22 03:19 Hem Pathologist Commnt No 01/26/22 03:19 VBG pH 7.344 (7.320-7.420) 01/25/22 08:18 Sodium 132 mmol/L (137-145) L 01/26/22 03:19 Potassium 4.9 mmol/L (3.6-5.0) 01/26/22 03:19 Chloride 95.0 mmol/L (98-107) L 01/26/22 03:19 Carbon Dioxide 20 mmol/L (22-30) L D 01/26/22 03:19 Anion Gap 22 mmol/L 01/26/22 03:19 BUN 26 mg/dL (7-17) H 01/26/22 03:19 Creatinine 1.3 mg/dL (0.6-1.2) H 01/26/22 03:19 Estimated GFR 50 ml/min 01/26/22 03:19 BUN/Creatinine Ratio 20 % 01/26/22 03:19 Glucose 507 mg/dL (65-100) H* 01/26/22 03:19 POC Glucose 553 mg/dL (70-105) H 01/25/22 22:21 Calcium 10.0 mg/dL (8.4-10.2) 01/26/22 03:19 Total Bilirubin 0.40 mg/dL (0.1-1.2) 01/25/22 08:18 AST 17 units/L (5-40) 01/25/22 08:18 ALT 20 units/L (7-56) 01/25/22 08:18 Alkaline Phosphatase 166 units/L (35-129) H 01/25/22 08:18 NT-Pro-B Natriuret Pep 49.86 pg/mL (0-900) 01/25/22 17:02 Total Protein 7.5 g/dL (6.3-8.2) 01/25/22 08:18 Albumin 4.4 g/dL (3.9-5) 01/25/22 08:18 Albumin/Globulin Ratio 1.4 % 01/25/22 08:18 Urine Color Yellow (Yellow) 01/25/22 Unknown Urine Turbidity Clear (Clear) 01/25/22 Unknown Urine pH 5.0 (5.0-7.0) 01/25/22 Unknown Ur Specific [place] 1.025 (1.003-1.030) 01/25/22 Unknown Urine Protein <15 mg/dl mg/dL (Negative) 01/25/22 Unknown Urine Glucose (UA) >=500 mg/dL (Negative) 01/25/22 Unknown Urine Ketones Neg mg/dL (Negative) 01/25/22 Unknown Urine Blood Neg (Negative) 01/25/22 Unknown Urine Nitrite Neg (Negative) 01/25/22 Unknown Urine Bilirubin Neg (Negative) 01/25/22 Unknown Urine Urobilinogen < 2.0 mg/dL (<2.0) 01/25/22 Unknown Ur Leukocyte Esterase Neg (Negative) 01/25/22 Unknown Urine WBC (Auto) 6.0 /HPF (0.0-6.0) 01/25/22 Unknown Urine RBC (Auto) 1.0 /HPF (0.0-6.0) 01/25/22 Unknown U Epithel Cells (Auto) < 1.0 /HPF (0-13.0) 01/25/22 Unknown Urine Mucus Few /HPF 01/25/22 Unknown Quesada/IV: Voiding Method Toilet Active Medications - Current Medications Current Medications: Generic Name Dose Route Start Last Admin Trade Name Freq PRN Reason Stop Dose Admin Acetaminophen 650 mg 01/25/22 18:15 01/26/22 10:26 Acetaminophen 325 Mg Tab PO 650 mg Q4H PRN Administration Pain MILD(1-3)/Fever >100.5/CHANDLER Albuterol 2.5 mg 01/25/22 18:15 Albuterol 2.5 Mg/3 Ml Nebu IH Q4HRT PRN Shortness Of Breath Dextrose 50 ml 01/25/22 21:24 Dextrose 50% In Water (25gm) 50 Ml Syringe IV Q30MIN PRN Hypoglycemia Protocol Famotidine 10 mg 01/25/22 22:00 01/26/22 09:33 Famotidine 10 Mg Tab PO 10 mg BID MILO Administration Hydromorphone HCl 0.5 mg 01/25/22 18:15 Hydromorphone 1 Mg/1 Ml Inj IV Q3H PRN Pain , Severe (7-10) Insulin Human Lispro 0 unit 01/26/22 00:00 01/26/22 05:20 Insulin Lispro 100 Unit/Ml SUB-Q Not Given Q6HR MILO Protocol Methylprednisolone Sodium Succinate 40 mg 01/25/22 22:00 01/26/22 05:14 Methylprednisolone Sod Succinate 40 Mg/1 Ml Inj IV 40 mg Q8HR MILO Administration Ondansetron HCl 4 mg 01/25/22 18:15 Ondansetron 4 Mg/2 Ml Inj IV Q8H PRN Nausea And Vomiting Oxycodone/Acetaminophen 1 tab 01/25/22 18:15 Oxycodone /Acetaminophen 5-325mg Tab PO Q6H PRN Pain, Moderate (4-6) Sodium Chloride 10 ml 01/25/22 22:00 01/26/22 09:33 Sodium Chloride 0.9% 10 Ml Flush Syringe IV 10 ml BID MILO Administration Sodium Chloride 10 ml 01/25/22 18:15 Sodium Chloride 0.9% 10 Ml Flush Syringe IV PRN PRN LINE FLUSH
[2022-01-26] MEDS ORDERED: INSULIN GLARGINE 100 UNITS/ML SUB-Q ONE (12:00)
[2022-01-26] MEDS ORDERED: amLODIPine 5 MG TAB PO ONE (12:04)
[2022-01-26] MEDS ORDERED: hydroCHLOROthiazide 25 MG TAB PO ONE (13:00)
[2022-01-26] MEDS ORDERED: INSULIN GLARGINE 100 UNITS/ML SUB-Q SCH (22:00)
[2022-01-26] MEDS: INSULIN GLARGINE 100 UNITS/ML SUB-Q SCH (23:03)
[2022-01-27] MEDS: methylPREDNISolone Sod Succinate 40 MG/1 ML INJ IV SCH ×2 (06:24→17:09)
[2022-01-27] MEDS: INSULIN LISPRO 100 UNIT/ML SUB-Q SCH ×4 (06:24→17:14)
[2022-01-27 06:43] LABS: Hematocrit 43.6 % (30.3-42.9); Hemoglobin 14.5 gm/dl (10.1-14.3); Mean Corpuscular HGB Conc 33 % (30-34); Mean Corpuscular Volume 96 fl (79-97); Platelet Count 331 K/mm3 (140-440); Red Blood Count 4.56 M/mm3 (3.65-5.03); Red Cell Distribution Width 12.7 % (13.2-15.2)
[2022-01-27 07:00] LABS: Calcium 10.3 mg/dL (8.4-10.2)
[2022-01-27] MEDS: hydroCHLOROthiazide 12.5 MG CAP PO SCH (09:44)
[2022-01-27] MEDS: PANTOPRAZOLE 20 MG TAB PO SCH (09:44)
[2022-01-27] MEDS: FAMOTIDINE 10 MG TAB PO SCH ×2 (09:44→21:25)
[2022-01-27] MEDS: amLODIPine 10 MG TAB PO SCH (09:44)
[2022-01-27] MEDS: TAMSULOSIN 0.4 MG CAP PO SCH (09:44)
[2022-01-27] MEDS ORDERED: POTASSIUM CHLORIDE ER 10 MEQ TAB PO SCH (10:00)
[2022-01-27] MEDS ORDERED: NON-FORMULARY EACH (Hydrochlorothiazide [Hydrochlorothiazide] 12.5 MG Tablet) PO SCH (10:00)
[2022-01-27] MEDS ORDERED: NON-FORMULARY EACH (Potassium Chloride [Potassium Chloride] 10 MEQ Tablet.Er) PO SCH (10:00)
[2022-01-27] MEDS ORDERED: NON-FORMULARY EACH (Omeprazole [Omeprazole] 20 MG Capsule.Dr) PO SCH (10:00)
[2022-01-27] MEDS ORDERED: amLODIPine 10 MG TAB PO SCH (10:00)
[2022-01-27 10:08] LABS: Basophils % (Manual) 0 % (0.0-1.8); Eosinophils % (Manual) 0 % (0.0-4.3); Total Cells Counted 100
[2022-01-27 10:10] LABS: Large Platelets Few; Platelet Estimate Consistent w Auto; RBC Morphology Normal
--- NOTE | 2022-01-27 10:27 | Discharge Summary ---
Providers - Providers Date of Admission: 01/25/22 18:15 Date of discharge: 01/27/22 Attending physician: JAYLEEN GEIGER Primary care physician: SOTERO CRANE Hospitalization Reason for admission: SOB Condition: Critical Hospital course: 61 YO Female with HTN, DM, Nephrolithiasis, Asthma, Metabolic Syndrome presents to ED for evaluation of shortness of breath over the past 4 days with persistent and worsening symptoms over the same timeframe. Patient transported to [facility] via private vehicle for further care and evaluation of the aforementioned symptoms. The patient was seen and evaluated in the emergency department. All lab and imaging studies reviewed. Patient found to have status asthmaticus with a pulse oximetry of 88% on room air which is consistent with acute hypoxemic respiratory failure. Patient was treated with nebulizer therapy as well as supplemental oxygen with mild improvement in symptoms. Patient subsequently placed on noninvasive positive pressure ventilation with improvement in symptoms. The patient was admitted with diagnosis of acute hypoxic respiratory failure secondary to acute asthma exacerbation, nonketotic hyperosmolar syndrome and obesity hypoventilation syndrome/DANNY. Acute hypoxic respiratory failure Acute asthma exacerbation Nonketotic hyperosmolar syndrome Obesity hypoventilation syndrome/DANNY 01/26/2022. Patient's BG still remains elevated. We will add Lantus 10 units at bedtime. Solu-Medrol contributing to elevated BG. Resume home antidiabetic medications. Continue IV steroids, breathing treatment/nebulizers and supplemental oxygen. Exam - Constitutional Vitals: Temp Pulse Resp BP Pulse Ox 99.0 F 77 18 127/66 95 01/27/22 07:40 01/27/22 07:40 01/27/22 07:40 01/27/22 07:40 01/27/22 07:40 Plan Follow up with: SOTERO CRANE [Primary Care Provider] - 7 Days
--- NOTE | 2022-01-27 12:14 | Progress Note ---
Assessment and Plan Assessment and plan: 61 YO Female with HTN, DM, Nephrolithiasis, Asthma, Metabolic Syndrome presents to ED for evaluation of shortness of breath over the past 4 days with persistent and worsening symptoms over the same timeframe. Patient transported to [facility] via private vehicle for further care and evaluation of the aforementioned symptoms. The patient was seen and evaluated in the emergency department. All lab and imaging studies reviewed. Patient found to have status asthmaticus with a pulse oximetry of 88% on room air which is consistent with acute hypoxemic respiratory failure. Patient was treated with nebulizer therapy as well as supplemental oxygen with mild improvement in symptoms. Patient subsequently placed on noninvasive positive pressure ventilation with improvement in symptoms. Acute hypoxic respiratory failure Acute asthma exacerbation Diabetes mellitus type 2 Nonketotic hyperosmolar syndrome Obesity hypoventilation syndrome/DANNY 01/26/2022. Patient's BG still remains elevated. We will add Lantus 10 units at bedtime. Solu-Medrol contributing to elevated BG. Resume home antidiabetic m edications. Continue IV steroids, breathing treatment/nebulizers and supplemental oxygen. 01/27/2022. Patient still has BG greater than 500. We will start 70/30 insulin 15 units twice daily. We will start tapering Solu-Medrol. Patient reports that she is on semaglutide at home. Check hemoglobin A1c. Anticipate discharge in a.m. History Interval history: No new issues overnight Hospitalist Physical - Constitutional Vitals: Temp Pulse Resp BP Pulse Ox 99.0 F 77 18 127/66 95 01/27/22 07:40 01/27/22 07:40 01/27/22 07:40 01/27/22 07:40 01/27/22 07:40 General appearance: Present: no acute distress, obese - EENT Eyes: Present: PERRL, EOM intact ENT: hearing intact, clear oral mucosa, dentition normal - Neck Neck: Present: supple, normal ROM - Respiratory Respiratory effort: normal Respiratory: bilateral: CTA - Cardiovascular Rhythm: regular Heart Sounds: Present: S1 & S2. Absent: gallop, rub - Extremities Extremities: no ischemia, No edema, Full ROM - Abdominal General gastrointestinal: soft, non-tender, non-distended, normal bowel sounds - Integumentary Integumentary: Present: clear, warm, dry - Neurologic Neurologic: CNII-XII intact, moves all extremities Results - Labs CBC & Chem 7: 01/27/22 06:20 01/27/22 06:20 Labs: Laboratory Last Values WBC 13.4 K/mm3 (4.5-11.0) H 01/27/22 06:20 RBC 4.56 M/mm3 (3.65-5.03) 01/27/22 06:20 Hgb 14.5 gm/dl (10.1-14.3) H 01/27/22 06:20 Hct 43.6 % (30.3-42.9) H 01/27/22 06:20 MCV 96 fl (79-97) 01/27/22 06:20 MCH 32 pg (28-32) 01/27/22 06:20 MCHC 33 % (30-34) 01/27/22 06:20 RDW 12.7 % (13.2-15.2) L 01/27/22 06:20 Plt Count 331 K/mm3 (140-440) 01/27/22 06:20 Add Manual Diff Complete 01/27/22 06:20 Total Counted 100 01/27/22 06:20 Seg Neutrophils % Visitor Services Assistant 01/27/22 06:20 Seg Neuts % (Manual) 91.0 % (40.0-70.0) H 01/27/22 06:20 Band Neutrophils % 0 % 01/27/22 06:20 Lymphocytes % (Manual) 5.0 % (13.4-35.0) L 01/27/22 06:20 Reactive Lymphs % (Man) 0 % 01/27/22 06:20 Monocytes % (Manual) 3.0 % (0.0-7.3) 01/27/22 06:20 Eosinophils % (Manual) 0 % (0.0-4.3) 01/27/22 06:20 Basophils % (Manual) 0 % (0.0-1.8) 01/27/22 06:20 Metamyelocytes % 1.0 % 01/27/22 06:20 Myelocytes % 0 % 01/27/22 06:20 Promyelocytes % 0 % 01/27/22 06:20 Blast Cells % 0 % 01/27/22 06:20 Nucleated RBC % Not Reportable 01/27/22 06:20 Seg Neutrophils # Man 12.2 K/mm3 (1.8-7.7) H 01/27/22 06:20 Band Neutrophils # 0.0 K/mm3 01/27/22 06:20 Lymphocytes # (Manual) 0.7 K/mm3 (1.2-5.4) L 01/27/22 06:20 Abs React Lymphs (Man) 0.0 K/mm3 01/27/22 06:20 Monocytes # (Manual) 0.4 K/mm3 (0.0-0.8) 01/27/22 06:20 Eosinophils # (Manual) 0.0 K/mm3 (0.0-0.4) 01/27/22 06:20 Basophils # (Manual) 0.0 K/mm3 (0.0-0.1) 01/27/22 06:20 Metamyelocytes # 0.1 K/mm3 01/27/22 06:20 Myelocytes # 0.0 K/mm3 01/27/22 06:20 Promyelocytes # 0.0 K/mm3 01/27/22 06:20 Blast Cells # 0.0 K/mm3 01/27/22 06:20 WBC Morphology Not Reportable 01/27/22 06:20 Hypersegmented Neuts Not Reportable 01/27/22 06:20 Hyposegmented Neuts Not Reportable 01/27/22 06:20 Hypogranular Neuts Not Reportable 01/27/22 06:20 Smudge Cells Not Reportable 01/27/22 06:20 Toxic Granulation Not Reportable 01/27/22 06:20 Toxic Vacuolation Not Reportable 01/27/22 06:20 Dohle Bodies Not Reportable 01/27/22 06:20 Pelger-Huet Anomaly Not Reportable 01/27/22 06:20 Parth Rods Not Reportable 01/27/22 06:20 Platelet Estimate Consistent w auto 01/27/22 06:20 Clumped Platelets Not Reportable 01/27/22 06:20 Plt Clumps, EDTA Not Reportable 01/27/22 06:20 Large Platelets Few 01/27/22 06:20 Giant Platelets Not Reportable 01/27/22 06:20 Platelet Satelliting Not Reportable 01/27/22 06:20 Plt Morphology Comment Not Reportable 01/27/22 06:20 RBC Morphology Normal 01/27/22 06:20 Dimorphic RBCs Not Reportable 01/27/22 06:20 Polychromasia Not Reportable 01/27/22 06:20 Hypochromasia Not Reportable 01/27/22 06:20 Poikilocytosis Not Reportable 01/27/22 06:20 Anisocytosis Not Reportable 01/27/22 06:20 Microcytosis Not Reportable 01/27/22 06:20 Macrocytosis Not Reportable 01/27/22 06:20 Spherocytes Not Reportable 01/27/22 06:20 Pappenheimer Bodies Not Reportable 01/27/22 06:20 Sickle Cells Not Reportable 01/27/22 06:20 Target Cells Not Reportable 01/27/22 06:20 Tear Drop Cells Not Reportable 01/27/22 06:20 Ovalocytes Not Reportable 01/27/22 06:20 Helmet Cells Not Reportable 01/27/22 06:20 Wong-[place] Bodies Not Reportable 01/27/22 06:20 [place] Rings Not Reportable 01/27/22 06:20 [place] Cells Not Reportable 01/27/22 06:20 Bite Cells Not Reportable 01/27/22 06:20 Crenated Cell Not Reportable 01/27/22 06:20 Elliptocytes Not Reportable 01/27/22 06:20 Acanthocytes (Spur) Not Reportable 01/27/22 06:20 Rouleaux Not Reportable 01/27/22 06:20 Hemoglobin C Crystals Not Reportable 01/27/22 06:20 Schistocytes Not Reportable 01/27/22 06:20 Malaria parasites Not Reportable 01/27/22 06:20 Wiliam Bodies Not Reportable 01/27/22 06:20 Hem Pathologist Commnt No 01/27/22 06:20 VBG pH 7.344 (7.320-7.420) 01/25/22 08:18 Sodium 135 mmol/L (137-145) L 01/27/22 06:20 Potassium 5.2 mmol/L (3.6-5.0) H 01/27/22 06:20 Chloride 96.4 mmol/L (98-107) L 01/27/22 06:20 Carbon Dioxide 23 mmol/L (22-30) 01/27/22 06:20 Anion Gap 21 mmol/L 01/27/22 06:20 BUN 31 mg/dL (7-17) H 01/27/22 06:20 Creatinine 1.5 mg/dL (0.6-1.2) H 01/27/22 06:20 Estimated GFR 42 ml/min 01/27/22 06:20 BUN/Creatinine Ratio 21 % 01/27/22 06:20 Glucose 567 mg/dL (65-100) H* 01/27/22 06:20 POC Glucose 510 mg/dL (70-105) H 01/26/22 22:59 Calcium 10.3 mg/dL (8.4-10.2) H 01/27/22 06:20 Total Bilirubin 0.40 mg/dL (0.1-1.2) 01/25/22 08:18 AST 17 units/L (5-40) 01/25/22 08:18 ALT 20 units/L (7-56) 01/25/22 08:18 Alkaline Phosphatase 166 units/L (35-129) H 01/25/22 08:18 NT-Pro-B Natriuret Pep 49.86 pg/mL (0-900) 01/25/22 17:02 Total Protein 7.5 g/dL (6.3-8.2) 01/25/22 08:18 Albumin 4.4 g/dL (3.9-5) 01/25/22 08:18 Albumin/Globulin Ratio 1.4 % 01/25/22 08:18 Urine Color Yellow (Yellow) 01/25/22 Unknown Urine Turbidity Clear (Clear) 01/25/22 Unknown Urine pH 5.0 (5.0-7.0) 01/25/22 Unknown Ur Specific [place] 1.025 (1.003-1.030) 01/25/22 Unknown Urine Protein <15 mg/dl mg/dL (Negative) 01/25/22 Unknown Urine Glucose (UA) >=500 mg/dL (Negative) 01/25/22 Unknown Urine Ketones Neg mg/dL (Negative) 01/25/22 Unknown Urine Blood Neg (Negative) 01/25/22 Unknown Urine Nitrite Neg (Negative) 01/25/22 Unknown Urine Bilirubin Neg (Negative) 01/25/22 Unknown Urine Urobilinogen < 2.0 mg/dL (<2.0) 01/25/22 Unknown Ur Leukocyte Esterase Neg (Negative) 01/25/22 Unknown Urine WBC (Auto) 6.0 /HPF (0.0-6.0) 01/25/22 Unknown Urine RBC (Auto) 1.0 /HPF (0.0-6.0) 01/25/22 Unknown U Epithel Cells (Auto) < 1.0 /HPF (0-13.0) 01/25/22 Unknown Urine Mucus Few /HPF 01/25/22 Unknown Quesada/IV: Voiding Method Toilet Active Medications - Current Medications Current Medications: Generic Name Dose Route Start Last Admin Trade Name Freq PRN Reason Stop Dose Admin Acetaminophen 650 mg 01/25/22 18:15 01/26/22 10:26 Acetaminophen 325 Mg Tab PO 650 mg Q4H PRN Administration Pain MILD(1-3)/Fever >100.5/CHANDLER Albuterol 2.5 mg 01/25/22 18:15 Albuterol 2.5 Mg/3 Ml Nebu IH Q4HRT PRN Shortness Of Breath Amlodipine Besylate 10 mg 01/26/22 12:05 01/27/22 09:44 Amlodipine 10 Mg Tab PO 10 mg DAILY MILO Administration Dextrose 50 ml 01/25/22 21:24 Dextrose 50% In Water (25gm) 50 Ml Syringe IV Q30MIN PRN Hypoglycemia Protocol Famotidine 10 mg 01/25/22 22:00 01/27/22 09:44 Famotidine 10 Mg Tab PO 10 mg BID MILO Administration Hydrochlorothiazide 12.5 mg 01/27/22 10:00 01/27/22 09:44 Hydrochlorothiazide 12.5 Mg Cap PO 12.5 mg QDAY MILO Administration Hydromorphone HCl 0.5 mg 01/25/22 18:15 Hydromorphone 1 Mg/1 Ml Inj IV Q3H PRN Pain , Severe (7-10) Insulin Glargine 10 units 01/26/22 22:00 01/26/22 23:03 Insulin Glargine 100 Units/Ml SUB-Q 10 units QHS MILO Administration Insulin Human Isoph/Insulin Regular 15 unit 01/27/22 17:00 Insulin Nph/Regular 70/30 Inj SUB-Q BIDDIAB MILO Insulin Human Lispro 0 unit 01/26/22 00:00 01/27/22 06:24 Insulin Lispro 100 Unit/Ml SUB-Q 10 unit Q6HR MILO Administration Protocol Methylprednisolone Sodium Succinate 40 mg 01/25/22 22:00 01/27/22 06:24 Methylprednisolone Sod Succinate 40 Mg/1 Ml Inj IV 40 mg Q8HR MILO Administration Ondansetron HCl 4 mg 01/25/22 18:15 Ondansetron 4 Mg/2 Ml Inj IV Q8H PRN Nausea And Vomiting Oxycodone/Acetaminophen 1 tab 01/25/22 18:15 Oxycodone /Acetaminophen 5-325mg Tab PO Q6H PRN Pain, Moderate (4-6) Pantoprazole Sodium 20 mg 01/27/22 10:00 01/27/22 09:44 Pantoprazole 20 Mg Tab PO 20 mg QDAY MILO Administration Sodium Chloride 10 ml 01/25/22 22:00 01/27/22 09:44 Sodium Chloride 0.9% 10 Ml Flush Syringe IV 10 ml BID MILO Administration Sodium Chloride 10 ml 01/25/22 18:15 Sodium Chloride 0.9% 10 Ml Flush Syringe IV PRN PRN LINE FLUSH Tamsulosin HCl 0.4 mg 01/27/22 10:00 01/27/22 09:44 Tamsulosin 0.4 Mg Cap PO 0.4 mg QDAY MILO Administration Nutrition/Malnutrition Assess - Dietary Evaluation Nutrition/Malnutrition Findings: Nutrition Notes Start: 01/26/22 11:27 Freq: Status: Active Protocol: Document 01/26/22 11:27 RHONDA (Rec: 01/26/22 11:32 RHONDA [email or web address]) Nutrition Notes Need for Assessment generated from: elevator service mechanic,MST Initial or Follow up Brief Note Current Diagnosis Diabetes,Hypertension, Respiratory Failure Other Pertinent Diagnosis Status asthmaticus Current Diet Cardiac Labs/Tests Na 132 BG 507 BUN 26 Cr 1.3 Pertinent Medications Solumedrol Height 5 ft 3 in Weight 94.5 kg [place] Body Weight (kg) 52.27 BMI 36.8 Weight Status Obese Subjective/Other Information Pt screened for malnutrition and skin risks (Carlos score: 21). Pt reports elevated BS, BP and blurry vision x 2 wks. Burn Absent Trauma Absent Minimum of two criteria No Is patient on ventilator? No Is Patient Ambulatory and/or Out of Bed No REE-([facility]-confined to bed) 1767.864 Kcal/Kg value to use for calculation 14 Approximate Energy Requirements Using 1323 kcal/Kg Calculation Used for Recommendations Kcal/kg Additional Notes Pro needs 1-1.2g/kg adjBW: 73- 88g/day Fluid needs 1ml/kcal Nutrition Intervention Follow-Up By: 01/30/22 Additional Comments F/U: intakes, wt assessment
[2022-01-27] MEDS ORDERED: INSULIN NPH/REGULAR 70/30 INJ SUB-Q SCH (13:00)
[2022-01-27] MEDS ORDERED: INSULIN NPH/REGULAR 70/30 INJ SUB-Q ONE (17:37)
[2022-01-27] MEDS ORDERED: INSULIN GLARGINE 100 UNITS/ML SUB-Q SCH (22:00)
[2022-01-27] MEDS: INSULIN GLARGINE 100 UNITS/ML SUB-Q SCH (22:30)
[2022-01-28] MEDS: methylPREDNISolone Sod Succinate 40 MG/1 ML INJ IV SCH ×2 (06:10→20:40)
[2022-01-28] MEDS: INSULIN LISPRO 100 UNIT/ML SUB-Q SCH ×3 (06:27→13:40)
[2022-01-28] MEDS: INSULIN NPH/REGULAR 70/30 INJ SUB-Q SCH ×2 (09:14→18:39)
--- NOTE | 2022-01-28 09:56 | Progress Note ---
Assessment and Plan Assessment and plan: 61 YO Female with HTN, DM, Nephrolithiasis, Asthma, Metabolic Syndrome presents to ED for evaluation of shortness of breath over the past 4 days with persistent and worsening symptoms over the same timeframe. Patient transported to [facility] via private vehicle for further care and evaluation of the aforementioned symptoms. The patient was seen and evaluated in the emergency department. All lab and imaging studies reviewed. Patient found to have status asthmaticus with a pulse oximetry of 88% on room air which is consistent with acute hypoxemic respiratory failure. Patient was treated with nebulizer therapy as well as supplemental oxygen with mild improvement in symptoms. Patient subsequently placed on noninvasive positive pressure ventilation with improvement in symptoms. Acute hypoxic respiratory failure Acute asthma exacerbation Diabetes mellitus type 2 Nonketotic hyperosmolar syndrome Obesity hypoventilation syndrome/DANNY 01/26/2022. Patient's BG still remains elevated. We will add Lantus 10 units at bedtime. Solu-Medrol contributing to elevated BG. Resume home antidiabetic m edications. Continue IV steroids, breathing treatment/nebulizers and supplemental oxygen. 01/27/2022. Patient still has BG greater than 500. We will start 70/30 insulin 15 units twice daily. We will start tapering Solu-Medrol. Patient reports that she is on semaglutide at home. Check hemoglobin A1c. Anticipate discharge in a.m. 01/28/2022. Patient's BG much better controlled. Continue 70/30 insulin 25 units twice daily. Hemoglobin A1c elevated at 10.2. Patient reports that she is on semaglutide at home. Continue Solu-Medrol taper. Patient complains of severe headache this morning. Check CT of head. History Interval history: No new issues overnight Hospitalist Physical - Constitutional Vitals: Temp Pulse Resp BP Pulse Ox 97.7 F 82 20 177/96 95 01/28/22 05:40 01/28/22 05:40 01/28/22 05:40 01/28/22 05:40 01/28/22 05:40 General appearance: Present: no acute distress, obese - EENT Eyes: Present: PERRL, EOM intact ENT: hearing intact, clear oral mucosa, dentition normal - Neck Neck: Present: supple, normal ROM - Respiratory Respiratory effort: normal Respiratory: bilateral: CTA - Cardiovascular Rhythm: regular Heart Sounds: Present: S1 & S2. Absent: gallop, rub - Extremities Extremities: no ischemia, No edema, Full ROM - Abdominal General gastrointestinal: soft, non-tender, non-distended, normal bowel sounds - Integumentary Integumentary: Present: clear, warm, dry - Neurologic Neurologic: CNII-XII intact, moves all extremities Results - Labs CBC & Chem 7: 01/27/22 06:20 01/27/22 06:20 Labs: Laboratory Last Values WBC 13.4 K/mm3 (4.5-11.0) H 01/27/22 06:20 RBC 4.56 M/mm3 (3.65-5.03) 01/27/22 06:20 Hgb 14.5 gm/dl (10.1-14.3) H 01/27/22 06:20 Hct 43.6 % (30.3-42.9) H 01/27/22 06:20 MCV 96 fl (79-97) 01/27/22 06:20 MCH 32 pg (28-32) 01/27/22 06:20 MCHC 33 % (30-34) 01/27/22 06:20 RDW 12.7 % (13.2-15.2) L 01/27/22 06:20 Plt Count 331 K/mm3 (140-440) 01/27/22 06:20 Add Manual Diff Complete 01/27/22 06:20 Total Counted 100 01/27/22 06:20 Seg Neutrophils % Plastic Manager 01/27/22 06:20 Seg Neuts % (Manual) 91.0 % (40.0-70.0) H 01/27/22 06:20 Band Neutrophils % 0 % 01/27/22 06:20 Lymphocytes % (Manual) 5.0 % (13.4-35.0) L 01/27/22 06:20 Reactive Lymphs % (Man) 0 % 01/27/22 06:20 Monocytes % (Manual) 3.0 % (0.0-7.3) 01/27/22 06:20 Eosinophils % (Manual) 0 % (0.0-4.3) 01/27/22 06:20 Basophils % (Manual) 0 % (0.0-1.8) 01/27/22 06:20 Metamyelocytes % 1.0 % 01/27/22 06:20 Myelocytes % 0 % 01/27/22 06:20 Promyelocytes % 0 % 01/27/22 06:20 Blast Cells % 0 % 01/27/22 06:20 Nucleated RBC % Not Reportable 01/27/22 06:20 Seg Neutrophils # Man 12.2 K/mm3 (1.8-7.7) H 01/27/22 06:20 Band Neutrophils # 0.0 K/mm3 01/27/22 06:20 Lymphocytes # (Manual) 0.7 K/mm3 (1.2-5.4) L 01/27/22 06:20 Abs React Lymphs (Man) 0.0 K/mm3 01/27/22 06:20 Monocytes # (Manual) 0.4 K/mm3 (0.0-0.8) 01/27/22 06:20 Eosinophils # (Manual) 0.0 K/mm3 (0.0-0.4) 01/27/22 06:20 Basophils # (Manual) 0.0 K/mm3 (0.0-0.1) 01/27/22 06:20 Metamyelocytes # 0.1 K/mm3 01/27/22 06:20 Myelocytes # 0.0 K/mm3 01/27/22 06:20 Promyelocytes # 0.0 K/mm3 01/27/22 06:20 Blast Cells # 0.0 K/mm3 01/27/22 06:20 WBC Morphology Not Reportable 01/27/22 06:20 Hypersegmented Neuts Not Reportable 01/27/22 06:20 Hyposegmented Neuts Not Reportable 01/27/22 06:20 Hypogranular Neuts Not Reportable 01/27/22 06:20 Smudge Cells Not Reportable 01/27/22 06:20 Toxic Granulation Not Reportable 01/27/22 06:20 Toxic Vacuolation Not Reportable 01/27/22 06:20 Dohle Bodies Not Reportable 01/27/22 06:20 Pelger-Huet Anomaly Not Reportable 01/27/22 06:20 Parth Rods Not Reportable 01/27/22 06:20 Platelet Estimate Consistent w auto 01/27/22 06:20 Clumped Platelets Not Reportable 01/27/22 06:20 Plt Clumps, EDTA Not Reportable 01/27/22 06:20 Large Platelets Few 01/27/22 06:20 Giant Platelets Not Reportable 01/27/22 06:20 Platelet Satelliting Not Reportable 01/27/22 06:20 Plt Morphology Comment Not Reportable 01/27/22 06:20 RBC Morphology Normal 01/27/22 06:20 Dimorphic RBCs Not Reportable 01/27/22 06:20 Polychromasia Not Reportable 01/27/22 06:20 Hypochromasia Not Reportable 01/27/22 06:20 Poikilocytosis Not Reportable 01/27/22 06:20 Anisocytosis Not Reportable 01/27/22 06:20 Microcytosis Not Reportable 01/27/22 06:20 Macrocytosis Not Reportable 01/27/22 06:20 Spherocytes Not Reportable 01/27/22 06:20 Pappenheimer Bodies Not Reportable 01/27/22 06:20 Sickle Cells Not Reportable 01/27/22 06:20 Target Cells Not Reportable 01/27/22 06:20 Tear Drop Cells Not Reportable 01/27/22 06:20 Ovalocytes Not Reportable 01/27/22 06:20 Helmet Cells Not Reportable 01/27/22 06:20 Wong-Glenshaw Bodies Not Reportable 01/27/22 06:20 [place] Rings Not Reportable 01/27/22 06:20 Ina Cells Not Reportable 01/27/22 06:20 Bite Cells Not Reportable 01/27/22 06:20 Crenated Cell Not Reportable 01/27/22 06:20 Elliptocytes Not Reportable 01/27/22 06:20 Acanthocytes (Spur) Not Reportable 01/27/22 06:20 Rouleaux Not Reportable 01/27/22 06:20 Hemoglobin C Crystals Not Reportable 01/27/22 06:20 Schistocytes Not Reportable 01/27/22 06:20 Malaria parasites Not Reportable 01/27/22 06:20 Wiliam Bodies Not Reportable 01/27/22 06:20 Hem Pathologist Commnt No 01/27/22 06:20 VBG pH 7.344 (7.320-7.420) 01/25/22 08:18 Sodium 135 mmol/L (137-145) L 01/27/22 06:20 Potassium 5.2 mmol/L (3.6-5.0) H 01/27/22 06:20 Chloride 96.4 mmol/L (98-107) L 01/27/22 06:20 Carbon Dioxide 23 mmol/L (22-30) 01/27/22 06:20 Anion Gap 21 mmol/L 01/27/22 06:20 BUN 31 mg/dL (7-17) H 01/27/22 06:20 Creatinine 1.5 mg/dL (0.6-1.2) H 01/27/22 06:20 Estimated GFR 42 ml/min 01/27/22 06:20 BUN/Creatinine Ratio 21 % 01/27/22 06:20 Glucose 567 mg/dL (65-100) H* 01/27/22 06:20 POC Glucose 150 mg/dL (70-105) H 01/28/22 05:37 Hemoglobin A1c 10.2 % (4-6) H 01/27/22 12:13 Calcium 10.3 mg/dL (8.4-10.2) H 01/27/22 06:20 Total Bilirubin 0.40 mg/dL (0.1-1.2) 01/25/22 08:18 AST 17 units/L (5-40) 01/25/22 08:18 ALT 20 units/L (7-56) 01/25/22 08:18 Alkaline Phosphatase 166 units/L (35-129) H 01/25/22 08:18 NT-Pro-B Natriuret Pep 49.86 pg/mL (0-900) 01/25/22 17:02 Total Protein 7.5 g/dL (6.3-8.2) 01/25/22 08:18 Albumin 4.4 g/dL (3.9-5) 01/25/22 08:18 Albumin/Globulin Ratio 1.4 % 01/25/22 08:18 Urine Color Yellow (Yellow) 01/25/22 Unknown Urine Turbidity Clear (Clear) 01/25/22 Unknown Urine pH 5.0 (5.0-7.0) 01/25/22 Unknown Ur Specific [place] 1.025 (1.003-1.030) 01/25/22 Unknown Urine Protein <15 mg/dl mg/dL (Negative) 01/25/22 Unknown Urine Glucose (UA) >=500 mg/dL (Negative) 01/25/22 Unknown Urine Ketones Neg mg/dL (Negative) 01/25/22 Unknown Urine Blood Neg (Negative) 01/25/22 Unknown Urine Nitrite Neg (Negative) 01/25/22 Unknown Urine Bilirubin Neg (Negative) 01/25/22 Unknown Urine Urobilinogen < 2.0 mg/dL (<2.0) 01/25/22 Unknown Ur Leukocyte Esterase Neg (Negative) 01/25/22 Unknown Urine WBC (Auto) 6.0 /HPF (0.0-6.0) 01/25/22 Unknown Urine RBC (Auto) 1.0 /HPF (0.0-6.0) 01/25/22 Unknown U Epithel Cells (Auto) < 1.0 /HPF (0-13.0) 01/25/22 Unknown Urine Mucus Few /HPF 01/25/22 Unknown Quesada/IV: Voiding Method Toilet Active Medications - Current Medications Current Medications: Generic Name Dose Route Start Last Admin Trade Name Freq PRN Reason Stop Dose Admin Acetaminophen 650 mg 01/25/22 18:15 01/26/22 10:26 Acetaminophen 325 Mg Tab PO 650 mg Q4H PRN Administration Pain MILD(1-3)/Fever >100.5/CHANDLER Albuterol 2.5 mg 01/25/22 18:15 Albuterol 2.5 Mg/3 Ml Nebu IH Q4HRT PRN Shortness Of Breath Amlodipine Besylate 10 mg 01/26/22 12:05 01/27/22 09:44 Amlodipine 10 Mg Tab PO 10 mg DAILY MILO Administration Dextrose 50 ml 01/25/22 21:24 Dextrose 50% In Water (25gm) 50 Ml Syringe IV Q30MIN PRN Hypoglycemia Protocol Famotidine 10 mg 01/25/22 22:00 01/27/22 21:25 Famotidine 10 Mg Tab PO 10 mg BID MILO Administration Hydrochlorothiazide 12.5 mg 01/27/22 10:00 01/27/22 09:44 Hydrochlorothiazide 12.5 Mg Cap PO 12.5 mg QDAY MILO Administration Hydromorphone HCl 0.5 mg 01/25/22 18:15 Hydromorphone 1 Mg/1 Ml Inj IV Q3H PRN Pain , Severe (7-10) Insulin Glargine 10 units 01/26/22 22:00 01/27/22 22:30 Insulin Glargine 100 Units/Ml SUB-Q 10 units QHS MILO Administration Insulin Human Isoph/Insulin Regular 25 unit 01/28/22 08:00 Insulin Nph/Regular 70/30 Inj SUB-Q BIDDIAB MILO Insulin Human Lispro 0 unit 01/26/22 00:00 01/28/22 06:27 Insulin Lispro 100 Unit/Ml SUB-Q 3 unit Q6HR MILO Administration Protocol Methylprednisolone Sodium Succinate 40 mg 01/27/22 18:00 01/28/22 06:10 Methylprednisolone Sod Succinate 40 Mg/1 Ml Inj IV Not Given Q12H MILO Ondansetron HCl 4 mg 01/25/22 18:15 Ondansetron 4 Mg/2 Ml Inj IV Q8H PRN Nausea And Vomiting Oxycodone/Acetaminophen 1 tab 01/25/22 18:15 Oxycodone /Acetaminophen 5-325mg Tab PO Q6H PRN Pain, Moderate (4-6) Pantoprazole Sodium 20 mg 01/27/22 10:00 01/27/22 09:44 Pantoprazole 20 Mg Tab PO 20 mg QDAY MILO Administration Sodium Chloride 10 ml 01/25/22 22:00 01/27/22 21:25 Sodium Chloride 0.9% 10 Ml Flush Syringe IV 10 ml BID MILO Administration Sodium Chloride 10 ml 01/25/22 18:15 Sodium Chloride 0.9% 10 Ml Flush Syringe IV PRN PRN LINE FLUSH Tamsulosin HCl 0.4 mg 01/27/22 10:00 01/27/22 09:44 Tamsulosin 0.4 Mg Cap PO 0.4 mg QDAY MILO Administration Nutrition/Malnutrition Assess - Dietary Evaluation Nutrition/Malnutrition Findings: Nutrition Notes Start: 01/26/22 11:27 Freq: Status: Active Protocol: Document 01/26/22 11:27 [facility] (Rec: 01/26/22 11:32 [facility] [id number]) Nutrition Notes Need for Assessment generated from: plant anatomist,MST Initial or Follow up Brief Note Current Diagnosis Diabetes,Hypertension, Respiratory Failure Other Pertinent Diagnosis Status asthmaticus Current Diet Cardiac Labs/Tests Na 132 BG 507 BUN 26 Cr 1.3 Pertinent Medications Solumedrol Height 5 ft 3 in Weight 94.5 kg [place] Body Weight (kg) 52.27 BMI 36.8 Weight Status Obese Subjective/Other Information Pt screened for malnutrition and skin risks (Carlos score: 21). Pt reports elevated BS, BP and blurry vision x 2 wks. Burn Absent Trauma Absent Minimum of two criteria No Is patient on ventilator? No Is Patient Ambulatory and/or Out of Bed No REE-([facility]-confined to bed) 1767.864 Kcal/Kg value to use for calculation 14 Approximate Energy Requirements Using 1323 kcal/Kg Calculation Used for Recommendations Kcal/kg Additional Notes Pro needs 1-1.2g/kg adjBW: 73- 88g/day Fluid needs 1ml/kcal Nutrition Intervention Follow-Up By: 01/30/22 Additional Comments F/U: intakes, wt assessment
[2022-01-28] MEDS: hydroCHLOROthiazide 12.5 MG CAP PO SCH (13:00)
[2022-01-28] MEDS: FAMOTIDINE 10 MG TAB PO SCH ×2 (13:00→21:20)
[2022-01-28] MEDS: TAMSULOSIN 0.4 MG CAP PO SCH (13:03)
[2022-01-28] MEDS: PANTOPRAZOLE 20 MG TAB PO SCH (13:04)
[2022-01-28] MEDS: amLODIPine 10 MG TAB PO SCH (13:05)
--- NOTE | 2022-01-28 13:16 | Cat Scan Report ---
NONENHANCED CT SCAN OF THE HEAD: INDICATION / CLINICAL INFORMATION: 61 years Female; headache. TECHNIQUE: Routine CT head without contrast. All CT scans at this location are performed using CT dos e reduction for ALARA by means of automated exposure control. COMPARISON: None. FINDINGS: BRAIN / INTRACRANIAL CONTENTS: No acute hemorrhage, mass effect, midline shift, hydrocephalus, or acu te, large territorial infarct. No chronic infarct or focal atrophy. Mild cortical involution. No sign ificant white matter abnormality. CRANIOCERVICAL JUNCTION: No significant abnormality. ORBITS: No significant abnormality of visualized orbits. SINUSES / MASTOIDS: No significant abnormality of the visualized paranasal sinuses or mastoid air raul ls. ADDITIONAL FINDINGS: None. IMPRESSION: No acute focal parenchymal lesion Signer Name: Hailey Navarro MD Signed: 01/28/2022 1:12 PM Workstation Name: [id number]
[2022-01-28] MEDS: INSULIN GLARGINE 100 UNITS/ML SUB-Q SCH (21:21)
[2022-01-29] MEDS: INSULIN LISPRO 100 UNIT/ML SUB-Q SCH ×4 (01:00→12:11)
[2022-01-29 03:36] VITALS: BP 100/66
[2022-01-29] MEDS: methylPREDNISolone Sod Succinate 40 MG/1 ML INJ IV SCH ×2 (05:48→06:00)
[2022-01-29] MEDS: PANTOPRAZOLE 20 MG TAB PO SCH (09:20)
[2022-01-29] MEDS: FAMOTIDINE 10 MG TAB PO SCH (09:20)
[2022-01-29] MEDS: INSULIN NPH/REGULAR 70/30 INJ SUB-Q SCH (09:20)
[2022-01-29] MEDS: TAMSULOSIN 0.4 MG CAP PO SCH (09:20)
[2022-01-29] MEDS: amLODIPine 10 MG TAB PO SCH (09:20)
[2022-01-29] MEDS: hydroCHLOROthiazide 12.5 MG CAP PO SCH (09:22)
--- NOTE | 2022-01-29 11:18 | Discharge Summary ---
Providers - Providers Date of Admission: 01/25/22 18:15 Attending physician: MARCY STEVENS MD Primary care physician: SOTERO ANN CRANE Hospitalization Reason for admission: Asthma exacerbation Condition: Stable Hospital course: 61 YO Female with HTN, DM, Nephrolithiasis, Asthma, Metabolic Syndrome presents to ED for evaluation of shortness of breath over the past 4 days with persistent and worsening symptoms over the same timeframe. Patient transported to [facility] via private vehicle for further care and evaluation of the aforementioned symptoms. The patient was seen and evaluated in the emergency department. All lab and imaging studies reviewed. Patient found to have status asthmaticus with a pulse oximetry of 88% on room air which is consistent with acute hypoxemic respiratory failure. Patient was treated with nebulizer therapy as well as supplemental oxygen with mild improvement in symptoms. Patient subsequently placed on noninvasive positive pressure ventilation with improvement in symptoms. Acute hypoxic respiratory failure Acute asthma exacerbation Diabetes mellitus type 2 Nonketotic hyperosmolar syndrome Obesity hypoventilation syndrome/DANNY 01/26/2022. Patient's BG still remains elevated. We will add Lantus 10 units at bedtime. Solu-Medrol contributing to elevated BG. Resume home antidiabetic medications. Continue IV steroids, breathing treatment/nebulizers and supplemental oxygen. 01/27/2022. Patient still has BG greater than 500. We will start 70/30 insulin 15 units twice daily. We will start tapering Solu-Medrol. Patient reports that she is on semaglutide at home. Check hemoglobin A1c. Anticipate discharge in a.m. 01/28/2022. Patient's BG much better controlled. Continue 70/30 insulin 25 units twice daily. Hemoglobin A1c elevated at 10.2. Patient reports that she is on semaglutide at home. Continue Solu-Medrol taper. Patient complains of severe headache this morning. Check CT of head. 01/29: Patient seen and examined doing better clinically improved. I did have extensive conversation with her she takes Ozempic which I have ordered and I will also order some sliding scale in the meantime just in case. She is going to following up with her doctor in a week or less considering recent hospitalization. I discussed with her what to do if her blood sugar gets out of control. She verbalized understanding. She tells me that her doctor actually sent her to the hospital to get antibiotics as she is normally exacerbated by pollen. I did discharge her on amoxicillin and also Flonase. We discussed we ight loss she verbalized understanding 15 minutes of counseling provided Disposition: 01 HOME / SELF CARE / HOMELESS Final Discharge Diagnosis (Prints w/discharge instructions): Asthma exacerbation Time spent for discharge: 35-minute Core Measure Documentation - Palliative Care Palliative Care/ Comfort Measures: Not Applicable - Core Measures Any of the following diagnoses?: none Exam - Physical Exam Narrative exam: VITAL SIGNS: Reviewed. GENERAL: The patient appears normally developed, obese, Vital signs as documented. HEAD: No signs of head trauma. EYES: Pupils are equal. Extraocular motions intact. EARS: Hearing grossly intact. MOUTH: Oropharynx is normal. NECK: No adenopathy, no JVD. CHEST: Chest with clear breath sounds bilaterally. No wheezes, rales, or rhonchi. CARDIAC: Regular rate and rhythm. S1 and S2, without murmurs, gallops, or rubs. VASCULAR: No Edema. Peripheral pulses normal and equal in all extremities. ABDOMEN: Soft, non tender and non distended. No rebound or guarding, and no masses palpated. Bowel Sounds normal. MUSCULOSKELETAL: Good range of motion of all major joints. Extremities without clubbing, cyanosis or edema. NEUROLOGIC EXAM: Alert and oriented x 3 No focal sensory or strength deficits. Speech normal. Follows commands. PSYCHIATRIC: Mood normal. SKIN: detail exam as documented in skin assessment - Constitutional Vitals: Temp Pulse Resp BP Pulse Ox 98.6 F 78 20 100/66 98 01/28/22 22:00 01/28/22 22:00 01/28/22 16:00 01/28/22 22:00 01/28/22 22:00 Plan Activity: advance as tolerated, fall precautions Diet: diabetic Special Instructions: record daily weights, record daily BP diary, record blood sugar diary Follow up with: SOTERO CRANE [Primary Care Provider] - 7 Days KEENA MARIN MD [Staff Physician] - 7 Days Prescriptions: Amoxicillin [Amoxicillin CAP] 250 mg PO Q8HR #10 capsule Fluticasone [Flonase] 1 spray NS QDAY #1 bottle Semaglutide [Ozempic] 0.25 mg SQ 1XW #4 pen Prednisone [predniSONE 5 mg (6-Day Pack, 21 Tabs)] 5 mg PO .TAPER #1
== END 2022-01-29 12:45 | disposition home or self-care (01) | DRG 189 ==
LOC: ED 06:35 → 3A 18:15
PROVIDERS: ADMIT Internal Medicine; ATTEND Internal Medicine
DX: J96.01 Acute respiratory failure with hypoxia (principal); E11.00 Type 2 diabetes mellitus with hyperosmolarity without nonketotic hyperglycemic-hyperosmolar coma (NKHHC); E66.2 Morbid (severe) obesity with alveolar hypoventilation; J45.902 Unspecified asthma with status asthmaticus; Z68.36 Body mass index [BMI] 36.0-36.9, adult; E88.81 Metabolic syndrome and other insulin resistance; N20.0 Calculus of kidney; Z83.3 Family history of diabetes mellitus; Z82.49 Family history of ischemic heart disease and other diseases of the circulatory system
CPT/HCPCS: 36415; 70450; 71045; 80048; 80053; 81001; 82805; 82962; 83036; 83525; 83880; 85007; 85025; 85027; 94640; 94644; 96365; 96375; 99291; G0378; Q0177; Q9967; J1815; J2920; J2930; J3475; J7030

== ENCOUNTER 2022-03-26 17:39 | Emergency (ER) | payer OTHER ==
[2022-03-26] MEDS ORDERED: ALBUTEROL 2.5 MG/3 ML NEBU IH ONE (18:17)
[2022-03-26] MEDS ORDERED: IPRATROPIUM 0.02% NEBU 2.5 ML IH ONE (18:17)
[2022-03-26] MEDS ORDERED: dexAMETHasone 20 MG/5 ML VIAL IM ONE (18:20)
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
--- NOTE | 2022-03-26 19:03 | XRay Report ---
CHEST 1 VIEW INDICATION: wheezing - cough. COMPARISON: 01/25/2022 FINDINGS: Support devices: None. Heart: Normal. Lungs/Pleura: No acute pulmonary or pleural findings. IMPRESSION: 1. No acute findings. Signer Name: Abebe Owen MD Signed: 03/26/2022 6:59 PM Workstation Name: [id number]
[2022-03-26 19:47] VITALS: BP 140/81
== END 2022-03-26 22:01 | disposition home or self-care (01) ==
LOC: ED 17:39
DX: J45.901 Unspecified asthma with (acute) exacerbation (principal); R06.02 Shortness of breath
CPT/HCPCS: 71045; 94640; 96372; 99283; J1100; 94644